=== PATIENT | female | born 1985 | race American Indian/Alaskan Native ===

== ENCOUNTER 2019-02-22 12:33 | Outpatient (CLI) | payer BC ==
--- NOTE | 2019-02-22 15:23 | Ultrasound Report ---
BILATERAL DIGITAL DIAGNOSTIC MAMMOGRAM WITH CAD LEFT COMPLETE BREAST ULTRASOUND INDICATION: Left breast pain and swelling. Patient stated that she had received antibiotics 2 weeks a go by an injection in her symptoms have not improved. TECHNIQUE: Digital bilateral mammographic imaging was performed. Complete ultrasound of all four (4) quadrants was performed. This examination was interpreted with the benefit of Computer-Aided Detecti on (CAD) analysis. COMPARISON: None. These are baseline exams. FINDINGS: Breast Density: The breasts are heterogeneously dense, which may obscure small masses in the left darren ast is diffusely more dense than the right. There is a suggestion of multiple circumscribed masses in the outer left breast. No architectural dis tortion or suspicious calcifications. Ultrasound Findings: Complete sonographic evlauation of all 4 quadrants and retroareolar region was p erformed. Multiple irregular hypoechoic masses with moving echoes within them. A mass at 12:00 9 cm from the nipple measures 3.3 x 3.2 x 2.0 cm. A mass at 12:00 at the edge of the area low measures 2. 8 x 3 x 1.3 cm. A mass at 1:00 10 cm from the nipple measures 3.5 x 2.5 x 1.2 cm. A mass at 2:00 8 cm from the nipple measures 3.6 x 1.8 x 1.4 cm. A mass at 3:00 5 cm from the nipple measures 5.1 x 4.5 x 1.6 cm. Mass at 4:00 7 cm from the nipple measures 2.7 x 1.9 x 0.8 cm. A mass at 5:00 at the edge o f the area low measures 2.3 x 1.4 x 1.8 cm. Ultrasound of the left axilla demonstrates a few normal l ymph nodes. No abnormal lymph nodes. IMPRESSION: Acute left mastitis and multiple abscesses and 12:00 to 5:00. Recommend consultation with a breast surgeon and percutaneous aspiration of multiple abscesses. BI-RADS Category 3: Probably Benign. I spoke to the patient regarding the findings and my recommendation for consultation with a breast sheriff rgeon for percutaneous aspiration of abscesses. Because of the urgency of the situation, I also arran mike for her to see Dr. Lillian Marti tomorrow. A "normal" or negative report should not discourage follow up or biopsy of a clinically significant f inding. A written summary of these findings will be mailed to the patient. The patient will be entered into a mammography reporting system which will generate a reminder letter for the patient's next appointmen t at the appropriate interval. FURTHER INFORMATION: According to the [employer], yearly mammograms are recommend ed starting at age 40 and continuing as long as a woman is in good health. Breast MRI is recommended for women with an approximately 20-25% or greater lifetime risk of breast cancer, including women wi th a strong family history of breast or ovarian cancer and women who have been treated for Hodgkin's disease. Signer Name: Everardo Tabor MD Signed: 02/22/2019 3:19 PM Workstation Name: [id number]
== END 2019-02-22 12:34 | disposition home or self-care (01) ==
LOC: MAMMO 12:33
PROVIDERS: ATTEND Obstetrics & Gynecology
DX: N61.0 Mastitis without abscess (principal); N63.23 Unspecified lump in the left breast, lower outer quadrant; N63.21 Unspecified lump in the left breast, upper outer quadrant; J45.909 Unspecified asthma, uncomplicated; K21.9 Gastro-esophageal reflux disease without esophagitis; E66.9 Obesity, unspecified; E11.9 Type 2 diabetes mellitus without complications
CPT/HCPCS: 77066

== ENCOUNTER 2019-02-24 10:16 | Outpatient (CLI) | payer BC | END 2019-02-24 10:17 | disposition home or self-care (01) | LOC: LABHHL 10:16 | PROVIDERS: ATTEND Surgery | DX: T88.8XXA Other specified complications of surgical and medical care, not elsewhere classified, initial encounter (principal); K21.9 Gastro-esophageal reflux disease without esophagitis; J45.909 Unspecified asthma, uncomplicated; M17.0 Bilateral primary osteoarthritis of knee; Y83.8 Other surgical procedures as the cause of abnormal reaction of the patient, or of later complication, without mention of misadventure at the time of the procedure; Y92.89 Other specified places as the place of occurrence of the external cause | CPT/HCPCS: 87075; 87116 ==

== ENCOUNTER 2019-03-01 07:39 | Day surgery (SDC) | payer BC ==
[~2019-03-01 07:39] MED LIST: ANCEF/STERILE WATER 2 GM/20 ML 2 GM/20 ML SYRINGE IV NR
--- NOTE | 2019-03-01 08:43 | Anesthesia Consultation ---
Anesthesia Consult and Med Hx Date of service: 03/01/19 - Airway Anesthetic Teeth Evaluation: Good ROM Head & Neck: Adequate Mental/Hyoid Distance: Adequate Mallampati Class: Class I Intubation Access Assessment: Good - Pulmonary Exam CTA: Yes - Cardiac Exam Cardiac Exam: RRR - Pre-Operative Health Status ASA Pre-Surgery Classification: ASA1 Proposed Anesthetic Plan: General - Pulmonary Hx Smoking: No Hx Asthma: Yes (mild-intermittent; no inhaler in 3 yrs) Hx Respiratory Symptoms: No - Cardiovascular System Hx Hypertension: No Hx Heart Attack/AMI: No - Central Nervous System Hx Seizures: No CVA: No - Gastrointestinal Hx Gastroesophageal Reflux Disease: No - Endocrine Hx Renal Disease: No Hx Liver Disease: No Hx Insulin Dependent Diabetes: No Hx Non-Insulin Dependent Diabetes: No (Gestational DM in 2013- now resolved) Hx Thyroid Disease: No - Other Systems Hx Obesity: Yes - Additional Comments Anesthesia Medical History Comments: No hx anesthetic complications.
--- NOTE | 2019-03-01 08:44 | Anesthesia Day of Surgery ---
Anesthesia Day of Surgery - Day of Surgery Patient Examined: Yes Patient H&P Reviewed: Yes Patient is NPO: Yes
[2019-03-01 08:59] LABS: Basophils % (Auto) 0.7 % (0.0-1.8); Eosinophils # (Auto) 0.1 K/mm3 (0.0-0.4); Eosinophils % (Auto) 1.9 % (0.0-4.3); Hematocrit 35.2 % (30.3-42.9); Lymphocytes # (Auto) 0.9 K/mm3 (1.2-5.4); Lymphocytes % (Auto) 13.4 % (13.4-35.0); Mean Corpuscular HGB Conc 34 % (30-34); Mean Corpuscular Volume 93 fl (79-97); Monocytes # (Auto) 0.7 K/mm3 (0.0-0.8); Monocytes % (Auto) 10.4 % (0.0-7.3); Platelet Count 360 K/mm3 (140-440); Red Blood Count 3.78 M/mm3 (3.65-5.03); Red Cell Distribution Width 12.8 % (13.2-15.2)
[2019-03-01] MEDS ORDERED: LACTATED RINGERS 1,000 ML IV SCH (09:00)
[2019-03-01] MEDS ORDERED: VERSED IV NR (09:00)
[2019-03-01] MEDS ORDERED: NEOSPORIN GU IR ONE ×2 (09:54→11:21)
[2019-03-01] MEDS ORDERED: VANCOMYCIN 1,250 MG in NACL 0.9% 250ML 250 ML IV SCH (10:00)
[2019-03-01] MEDS ORDERED: VANCOMYCIN/NS 1 GM/250 ML 1 GM/250 ML BAG IV NR (10:00)
--- NOTE | 2019-03-01 10:16 | Operative Report ---
Operative Report Operative Report: Operative Report: March 01, 2019 Preoperative diagnosis: Left breast abscess of the upper outer and lower outer quadrants Postoperative diagnosis: Same Procedure: Left breast abscess incision and drainage Surgeon: Lillian Marti M.D. Asst.: Vicki Santiago M.D. Anesthesia: Gen. Findings: Multiple left breast abscess pockets present from the 12-6:00 positions with 150 cc pus drained. Complications: None Drains: x2 [place] drains Estimated blood loss: Minimal Disposition: This is a 34-year-old lady who was seen on 02/23/2019 for left breast abscess with ultrasound findings of multiple abscess pockets from the 12- 6:00 positions. 30 mL were aspirated on ultrasound guidance on and an additional 60 mL aspirate under ultrasound guidance yesterday. Given the significant symptomatic pain upon ultrasound guidance aspiration and multiple abscess pockets, surgical incision and drainage was recommended. Patient with noted left breast abscess for one month. WBC day of surgery of 7. Patient with noted multiple abscess pockets is also noted from ultrasound performed on 02/22/2019. Patient wished to proceed with the above procedure. Procedure in detail: Patient was taken to the operating room and was placed supine. General anesthesia was administered. The left breast was prepped and draped in the normal sterile operative fashion. Ultrasound was used to identify the area of multiple abscess pockets that were present from the 12-6:00 positions. A lateral breast incision around the 4:00 position was made. A skin incision was made using a 15 blade knife with dissection taken down to the subcutaneous tissues. Abscess pocket was opened and breast drained from the 1- 5/6:00 positions of 150 cc of pus drained. Ultrasound was used to evaluate additional areas of abscess present with no additional areas seen on ultrasound. Breast tissues noted for edema. The breast was then pulsavac with 1 liter of NS mixed with antibiotic solution. Hemostasis was noted. 2 aman drains were placed and sutured in place and both areas packed with iodoform. Area of incision was covered with guaze and ABD pad and breast binder placed. She tolerated the surgery very well and was awakened from anesthesia without any complication and transferred to PACU in good condition.
[2019-03-01] MEDS ORDERED: DIPRIVAN 10 MG/ML IV ONE (10:22)
[2019-03-01] MEDS ORDERED: SUBLIMAZE ONE ×2 (10:22→11:15)
[2019-03-01] MEDS ORDERED: XYLOCAINE MPF 2% ONE (10:22)
[2019-03-01] MEDS ORDERED: VERSED ONE (10:23)
[2019-03-01] MEDS ORDERED: NACL 0.9% IR ONE (11:21)
[2019-03-01] MEDS ORDERED: PHENYLEPHRINE/NS Syringe 1,000 MCG/10 ML IV ONE (11:21)
[2019-03-01] MEDS ORDERED: DECADRON ONE (11:23)
[2019-03-01] MEDS ORDERED: ZOFRAN ONE (11:23)
[2019-03-01] MEDS ORDERED: MORPHINE ONE (11:37)
--- NOTE | 2019-03-01 11:48 | Short Stay Summary ---
Short Stay Documentation Date of service: 03/01/19 - History H&P: obtained from office - Allergies and Medications Current Medications: Allergies No Known Allergies Allergy (Verified 02/28/19 17:03) Home Medications Medication Instructions Recorded Confirmed Last Taken Type Acetaminophen/Codeine [Tylenol 1 tab PO Q4HR PRN 02/28/19 02/28/19 Unknown History /Codeine # 3 tab] Sulfamethoxazole/Trimethoprim 1 each PO BID 02/28/19 02/28/19 Unknown History [Bactrim DS TAB] oxyCODONE /ACETAMINOPHEN [Percocet 1 tab PO Q6HR PRN 02/28/19 02/28/19 Unknown History 5/325] Sulfamethoxazole/Trimethoprim 1 each PO BID #14 tablet 03/01/19 Unknown Rx [Bactrim DS TAB] oxyCODONE /ACETAMINOPHEN [Percocet 1 tab PO Q6HR PRN #20 tablet 03/01/19 Unknown Rx 5/325] Active Medications Hydromorphone HCl (Dilaudid) 0.5 mg IV Q10MIN PRN PRN Reason: Pain , Severe (7-10) Stop: 03/01/19 20:00 Lactated Ringer's (Lactated Ringers) 1,000 mls @ 100 mls/hr IV DIRECT FIOR Last Admin: 03/01/19 09:10 Dose: 100 mls/hr Documented by: Vancomycin HCl 1,250 mg/ (Sodium Chloride) 275 mls @ 166.667 mls/hr IV Q12H FIOR Last Admin: 03/01/19 10:10 Dose: 166.667 mls/hr Documented by: Midazolam HCl (Versed) 2 mg IV PREOP NR Stop: 03/01/19 23:59 Last Admin: 03/01/19 09:15 Dose: 2 mg Documented by: - Brief post op/procedure progress note Date of procedure: 03/01/19 Pre-op diagnosis: Left breast abscess of the upper outer and lower outer quadrants Post-op diagnosis: same Procedure: Left breast abscess incision and drainage Anesthesia: PRICE Surgeon: TEHEL MOLINA Software Testing Specialist: Dawson Reeder) Estimated blood loss: minimal Pathology: list Specimen disposition: to lab - Disposition Condition at discharge: Stable Disposition: [id number] TO HOME OR SELFCARE Short Stay Discharge Plan Activity: no driving until cleared by PCP Weight Bearing Status: Full Weight Bearing (Of extremities) Diet: regular Wound: per your surgeon's advice Special Instructions: no heavy lifting Follow up with: ETHEL MOLINA MD [Staff Physician] - 7 Days Prescriptions: Sulfamethoxazole/Trimethoprim [Bactrim DS TAB] 1 each PO BID #14 tablet oxyCODONE /ACETAMINOPHEN [Percocet 5/325] 1 tab PO Q6HR PRN #20 tablet PRN Reason: Pain
[2019-03-01] MEDS: DILAUDID IV PRN ×2 (12:22→12:30)
[2019-03-01 12:55] VITALS: BP 130/88
--- NOTE | 2019-03-01 15:29 | Post Anesthesia Evaluation ---
- Post Anesthesia Evaluation Patient Participated: Yes Airway Patent: Yes Stable Respiratory Function: Yes Nausea/Vomiting: No Temp > 96.8F: Yes Pain Manageable: Yes Adequeate Hydration: Yes Anesthesia Complications: No
== END 2019-03-01 13:30 | disposition home or self-care (01) ==
LOC: OR 07:39
PROVIDERS: ATTEND Surgery
DX: N61.1 Abscess of the breast and nipple (principal); J45.909 Unspecified asthma, uncomplicated; M19.90 Unspecified osteoarthritis, unspecified site; E11.9 Type 2 diabetes mellitus without complications; E66.9 Obesity, unspecified; Z79.899 Other long term (current) drug therapy; Z90.49 Acquired absence of other specified parts of digestive tract; Z68.37 Body mass index [BMI] 37.0-37.9, adult; Z98.891 History of uterine scar from previous surgery; Z72.89 Other problems related to lifestyle; Z98.890 Other specified postprocedural states; Z80.3 Family history of malignant neoplasm of breast
CPT/HCPCS: 19020; 36415; 81025; 85025; 87075; 87116; A4217; J1100; J1170; J2250; J2270; J2370; J2405; J2704; J3010; J3370; J7050; J7120

== ENCOUNTER 2019-05-12 16:12 | Outpatient (CLI) | payer BC ==
--- NOTE | 2019-05-12 17:23 | Ultrasound Report ---
EXAMINATION: Left Limited Breast Ultrasound, 05/12/2019 INDICATION: UNSPECIFIED LUMP IN LEFT BREAST. Patient presents for evaluation of an area of palpable concern in th e left breast, and additionally for further evaluation of a mass versus abscess seen on recent left d iagnostic mammogram. Patient has history of left breast abscesses status post surgical incision and d rainage as well as antibiotics. COMPARISON: Prior mammograms dated 05/05/2019 and 02/22/2019, and left breast ultrasound 02/22/2019 FINDINGS: Targeted ultrasound evaluation was performed of the area of interest. Corresponding with t he site of palpable concern and the mass seen on recent mammogram, there is a complex cystic and lisa d oval mass with predominantly circumscribed but partially indistinct margins in the left breast 5:00 position located 5 cm from the nipple measuring up to 1.8 x 1.4 x 0.7 cm. No internal vascularity i s noted. Additionally, in the left breast 3 to 4:00 position at site of surgical scar, there is a focal fluid collection measuring up to approximately 3.3 x 4.0 x 1.0 cm, with a sinus tract seen extending to the skin surface. Incidental note is made of an additional oval circumscribed hypoechoic mass in the left breast 6:00 p osition located 7 cm from the nipple measuring up to 7 x 3 x 2 mm. IMPRESSION: 1. Complex cystic and solid mass corresponds with site of palpable concern and mass seen on recent ma mmogram. This is considered probably benign and most likely represents abscess/phlegmon given patient 's history. Short interval follow-up left breast ultrasound in 3 months is recommended to ensure stab ility or resolution. 2. Additional abscess with sinus tract draining to the skin surface near site of surgical scar. 3. Incidental oval circumscribed mass in the 6:00 left breast is considered probably benign, attentio n at time of follow-up. Follow up recommendation: Short term follow up in 3 months. BI-RADS Category 3: Probably Benign. Followup in 3 months. Signer Name: Hue Jimenez MD Signed: 05/12/2019 5:19 PM Workstation Name: [id number]
== END 2019-05-12 16:13 | disposition home or self-care (01) ==
LOC: US 16:12
PROVIDERS: ATTEND Surgery
DX: N63.22 Unspecified lump in the left breast, upper inner quadrant (principal)